=== PATIENT | male | born 1995 | race Asian ===

== ENCOUNTER 2023-07-29 00:38 | Emergency (ER) | payer OTHER, SELFPAY ==
[2023-07-29 00:44] VITALS: BP 153/93; PULSE 85; RESP 18; TEMP 36.8; O2SAT 97; BMI 33.5
--- NOTE | 2023-07-29 02:19 | ED_ITS ---
HPI - Extremity Problem General Chief complaint: Extremity Problem,Nontraumatic Stated complaint: rt shoulder pain Time Seen by Provider: 07/29/23 02:08 Source: patient Mode of arrival: Ambulatory History of Present Illness HPI Narrative: 27-year-old gentleman, active [employer] [place], currently working with physical therapy for some neck issues went to physical therapy yesterday seems like there were no acute problems but woke up this morning with severe pain in his right shoulder. He describes it as unrelenting unable to get in a comfortable position not related to position of his arm or shoulder but painful to move the arm or shoulder. He has not having any warmth, redness or fevers. He describes no trauma to the shoulder. He has never had similar symptoms. He is not describing any paresthesias down the arm Related Data Previous Rx's Medication Instructions Recorded dexamethasone 4 mg tablet 10 mg (2.5 x 4 mg) PO DAILY #5 tabs 07/29/23 oxycodone-acetaminophen 5 mg-325 1 tab PO Q6H PRN pain #10 tabs 07/29/23 mg tablet Allergies Allergy/AdvReac Type Severity Reaction Status Date / Time No Known Drug Allergies Allergy Verified 07/29/23 02:26 Review of Systems Review of Systems Narrative: Pertinent positive and negative findings as per HPI Patient History Social History Smoking Status: Current every day smoker Smoking Status: Current every day smoker tobacco type: vaping Substance Use Type: does not use Exam Initial Vital Signs Initial Vital Signs: Vital Signs Temperature 98.3 F 07/29/23 00:44 Pulse Rate 85 07/29/23 00:44 Respiratory Rate 18 07/29/23 00:44 Blood Pressure 153/93 H 07/29/23 00:44 Pulse Oximetry 97 07/29/23 00:44 Oxygen Delivery Method Room Air 07/29/23 00:44 General: Alert appropriate in no acute distress Cervical spine: No point tenderness along the midline cervical spine. No tenderness with paraspinous muscles. He does have quite a bit of tenderness and spasm into the trapezius muscle on the right side. Respiratory: Able to speak in full sentences, no obvious respiratory distress Skin: No obvious rashes, warm and dry Neurologic: Grossly intact no obvious asymmetries or abnormalities, no paresthesias or weakness in the right upper extremity Extremity: Right shoulder does not have any warmth, redness, significantly less pain with passive range of motion at the joint. No specific tenderness over the AC joint, or the rotator cuff Psych: appropriate insight and affect, cooperative Course Orders Ordered: Discontinued Medications Dexamethasone (Dexamethasone 4 Mg Tablet) 12 mg PO NOW ONE Stop: 07/29/23 02:16 Last Admin: 07/29/23 02:25 Dose: 12 mg Documented By: HUBER Ketorolac Tromethamine (Ketorolac 30 Mg/Ml Vial) 30 mg IM NOW ONE Stop: 07/29/23 02:16 Last Admin: 07/29/23 02:24 Dose: 30 mg Documented By: HUBER Oxycodone/Acetaminophen (Oxycodone/Apap 5/325 Prepack) 1 bottle MISC DIRECTED ONE Stop: 07/29/23 02:17 Last Admin: 07/29/23 02:25 Dose: 1 bottle Documented By: HUBER Vital Signs Vital signs: Vital Signs - 8 hr 07/29/23 00:44 Temperature 98.3 F Pulse Rate 85 Respiratory Rate 18 Blood Pressure 153/93 H Pulse Oximetry 97 Oxygen Delivery Method Room Air MDM - Extremity (Nontraumatic) MDM Narrative Medical decision making narrative: CC: Right shoulder pain Complicating co-morbidities: Currently being treated for neck pain, physical therapy yesterday with the shoulder pain starting after the physical therapy Data collected from: patient Differential considered: Cervical radiculopathy and C4-5 distribution, rotator cuff tear, bursitis, trauma to the shoulder Exam documented above, pertinent findings include: Pain and tenderness in the right trapezius muscle. No overt weakness in the right upper extremity. Does not have significant pain with passive range of motion and I do not suspect a septic arthritis Teatments: IM Toradol, p.o. dexamethasone Discussion: 27-year-old gentleman with acute onset right shoulder pain occurring during sleep after physical therapy session for chronic neck pain. I suspect that this is a cervical radiculopathy. There was no evidence of trauma, infection or bursitis. We will give him 3 days of dexamethasone to see inflammatory control may make a difference. He has given a sling for comfort. Recommended 24 hours off work. His next physical therapy appointment for his neck pain is scheduled next week, encouraged him to discuss the shoulder pain with the therapist. Also encouraged him to [place] If symptoms persist he may need advanced imaging of the neck in the form of an MRI. There are no other acute findings, concerns are reviewed with the patient, questions are answered and he is safe for discharge Discharge Plan Departure Patient Disposition: Home Clinical Impression: Cervical radiculopathy at C5 Instructions: DI for Cervical Radiculopathy Activity Restrictions/Additional Instructions: Thank you for coming in today I suspect that the source of your upper shoulder pain is related to a pinched nerve in your neck rather than the shoulder joint itself. I have given you a shot of Toradol to help with the pain for the drive home. You can take 1 or 2 of the Percocet, narcotic pain medications, when you get home to help with the severe pain. Using a sling to help keep the shoulder immobilized and pull less on the neck can be helpful in controlling pain. If it does not help you do not need to use it. I have given you a soft cervical collar. Sometimes simply holding the neck still allows the muscles to relax so there isn't as much tension in the nerve roots as they are coming out. I would encourage you to schedule an appointment with your primary care doctor and talked to your physical therapist with your next appointment. If you continue to have pain you may need referral to an orthopedic surgeon and may need advanced imaging such as an MRI of your neck Using 400 mg of ibuprofen (2 [id number] pills) and 1 Tylenol every 6 hours can be very helpful in controlling pain. For severe pain using 400 mg of ibuprofen and 1 Percocet for a brief period of time maybe helpful. Typically narcotics are not all that helpful with nerve pain I have also given you a prescription for 2 additional days of dexamethasone. This is a steroid medication to reduce the inflammation in your neck which is presumably a part of the problem. Prescriptions were electronically transmitted to [facility] in [place] If you find that you are getting worse or develop any new symptoms, please feel free to return to the emergency department for further evaluation. Prescriptions: New dexamethasone 4 mg tablet 10 mg PO DAILY Qty: 5 0RF oxycodone-acetaminophen 5-325 mg tablet 1 tab PO Q6H PRN (Reason: pain) Qty: 10 0RF Referrals: [facility] [Primary Care Provider] - Stand Alone Forms: Patient Portal/API, Work Release Note
[2023-07-29] MEDS: KETOROLAC 30 MG/ML VIAL IM (02:24)
[2023-07-29] MEDS: dexAMETHasone 4 MG TABLET 12 MG PO (02:25)
[2023-07-29] MEDS: OXYCODONE/APAP 5/325 PREPACK 1 BOTTLE MISC (02:25)
--- NOTE | 2023-07-29 02:41 | PC.NURSE ---
Soft cervical collar not available, Dr Ibarra aware. Pt instructed that it may be helpful to obtain one from drug store. Pt agreeable.
== END 2023-07-29 02:44 | disposition home or self-care (01) ==
PROVIDERS: Emergency Provider Emergency Medicine
DX: M54.12 Radiculopathy, cervical region (principal)
CPT/HCPCS: 96372; 99283; 99284; J1885